=== PATIENT | female | born 1995 | race Native Hawaiian/Other Pacific Islander ===

== ENCOUNTER 2020-05-30 16:51 | Inpatient (IN) | payer OTHER, SELFPAY ==
--- NOTE | 2020-05-30 20:12 | History and Physical Report ---
History of Present Illness Date of examination: 05/30/20 Date of admission: 05/30/2020 Chief complaint: Contractions and Back Pain History of present illness: Early entry to care at [facility] , uncomplicated course. Past History Past Medical History: no pertinent history Past Surgical History: no surgical history Family/Genetic History: none Social history: no significant social history - Obstetrical History Expected Date of Delivery: 06/09/20 Actual Gestation: 38 Week(s) 4 Day(s) : 4 Para: 2 Spontaneous Abortions: 1 Number of Living Children: 2 Medications and Allergies Allergies Allergy/AdvReac Type Severity Reaction Status Date / Time No Known Allergies Allergy Verified 05/30/20 17:19 Home Medications Medication Instructions Recorded Confirmed Last Taken Type No Known Home Medications [No 05/30/20 05/30/20 Unknown History Reported Home Medications] Review of Systems All systems: negative - Vital Signs Vital signs: Vital Signs Pulse Pulse Ox 94 H 99 05/30/20 17:16 05/30/20 17:16 Temp Pulse Resp BP Pulse Ox 98.4 F 83 20 112/61 98 05/30/20 19:16 05/30/20 20:04 05/30/20 17:19 05/30/20 19:18 05/30/20 20:04 - Physical Exam Breasts: Positive: normal Cardiovascular: Regular rate Lungs: Positive: Clear to auscultation, Normal air movement Abdomen: Positive: normal appearance, soft, normal bowel sounds Genitourinary (Female): Positive: normal external genitalia, normal perenium Vagina: Positive: normal moisture Uterus: Positive: enlarged Anus/Rectum: Positive: normal perianal skin Extremities: Positive: normal - Obstetrical FHR: category 1 Uterine Contraction Monitor Mode: External Cervical Dilatation: 4 (Vtx; Intact) Cervical Effacement Percentage: 60 station: -2 Uterine Contraction Pattern: Irregular Uterine Tone Measurement Phase: Resting Uterine Contraction Intensity: Moderate Results All other labs normal. Assessment and Plan A: IUP @ 38 4/7 Weeks Category I Tracing Active Labor GBS Negative P: Admit to L&D Per Routine Orders Expectant Management
[2020-05-30] MEDS ORDERED: LIDOCAINE (2%) 20 MG/1 ML VIAL 20 ML MDV INFILTRATI ONE (20:21)
[2020-05-30] MEDS ORDERED: NALOXONE 0.4 MG/1 ML INJ IV PRN (20:21)
[2020-05-30] MEDS ORDERED: TERBUTALINE 1 MG/1 ML INJ SUB-Q PRN (20:21)
[2020-05-30] MEDS ORDERED: BUTORPHANOL 2 MG/1 ML INJ IV PRN (20:21)
[2020-05-30] MEDS ORDERED: ePHEDrine SULFATE 50 MG/1 ML INJ IV PRN (20:21)
[2020-05-30] MEDS ORDERED: MINERAL OIL 30 ML ORAL LIQD PO PRN (20:21)
[2020-05-30] MEDS ORDERED: ONDANSETRON 4 MG/2 ML INJ IV PRN (20:21)
[2020-05-30] MEDS: LACTATED RINGERS 1,000 ML IV SCH (20:35)
[2020-05-30 20:38] LABS: Hemoglobin 11.5 gm/dl (10.1-14.3); Mean Corpuscular HGB Conc 34 % (30-34); Mean Corpuscular Volume 79 fl (79-97); Platelet Count 264 K/mm3 (140-440); Red Blood Count 4.29 M/mm3 (3.65-5.03); Red Cell Distribution Width 14.6 % (13.2-15.2)
[2020-05-30] MEDS ORDERED: OXYTOCIN DRIP 30 UNITS/500 ML BAG IV SCH (21:00)
[2020-05-31] MEDS: ACETAMINOPHEN 500 MG TAB PO PRN ×2 (02:46→22:31)
[2020-05-31] MEDS: LACTATED RINGERS 1,000 ML IV SCH ×5 (04:47→15:57)
--- NOTE | 2020-05-31 10:32 | Progress Note ---
Assessment and Plan A: IUP@ 38.5 wks CAT I FHT p: Continue monitoring Pain med/Epidural prn AROM (cl fluid) Anticipate - Patient Problems (1) Term Current Visit: Yes Status: Acute Subjective - Subjective Date of service: 05/31/20 Principal diagnosis: IUP@ 38.5 WKS Patient reports: movement normal Objective - Vital Signs Vital Signs: Vital Signs - 12hr 05/30/20 05/30/20 05/30/20 22:29 22:34 22:39 Temperature Pulse Rate 101 H 102 H 77 Blood Pressure O2 Sat by Pulse 98 99 99 Oximetry 05/30/20 05/30/20 05/30/20 22:44 22:49 22:54 Temperature Pulse Rate 101 H 85 72 Blood Pressure O2 Sat by Pulse 99 98 98 Oximetry 05/30/20 05/30/20 05/30/20 22:59 23:04 23:09 Temperature Pulse Rate 82 89 80 Blood Pressure O2 Sat by Pulse 98 98 98 Oximetry 05/30/20 05/30/20 05/30/20 23:14 23:19 23:24 Temperature Pulse Rate 85 92 H 85 Blood Pressure O2 Sat by Pulse 98 98 98 Oximetry 05/30/20 05/30/20 05/30/20 23:29 23:34 23:39 Temperature Pulse Rate 86 79 86 Blood Pressure O2 Sat by Pulse 98 98 98 Oximetry 05/30/20 05/30/20 05/30/20 23:44 23:49 23:54 Temperature Pulse Rate 78 93 H 89 Blood Pressure O2 Sat by Pulse 98 98 98 Oximetry 05/30/20 05/31/20 05/31/20 23:59 00:04 00:09 Temperature Pulse Rate 85 87 85 Blood Pressure O2 Sat by Pulse 97 99 99 Oximetry 05/31/20 05/31/20 05/31/20 00:14 00:19 00:24 Temperature Pulse Rate 79 92 H 83 Blood Pressure O2 Sat by Pulse 99 100 99 Oximetry 05/31/20 05/31/20 05/31/20 00:29 00:34 00:39 Temperature Pulse Rate 91 H 93 H 91 H Blood Pressure O2 Sat by Pulse 100 99 99 Oximetry 05/31/20 05/31/20 05/31/20 00:44 00:49 00:54 Temperature Pulse Rate 77 89 80 Blood Pressure O2 Sat by Pulse 100 99 99 Oximetry 05/31/20 05/31/20 05/31/20 00:59 01:04 01:09 Temperature Pulse Rate 79 82 73 Blood Pressure O2 Sat by Pulse 99 99 99 Oximetry 05/31/20 05/31/20 05/31/20 01:14 01:19 01:24 Temperature Pulse Rate 73 71 75 Blood Pressure O2 Sat by Pulse 98 98 98 Oximetry 05/31/20 05/31/20 05/31/20 01:29 01:34 01:39 Temperature Pulse Rate 74 77 79 Blood Pressure O2 Sat by Pulse 98 98 100 Oximetry 05/31/20 05/31/20 05/31/20 01:44 01:49 01:55 Temperature Pulse Rate 78 68 74 Blood Pressure O2 Sat by Pulse 98 99 99 Oximetry 05/31/20 05/31/20 05/31/20 02:00 02:05 02:10 Temperature Pulse Rate 69 78 78 Blood Pressure O2 Sat by Pulse 99 99 100 Oximetry 05/31/20 05/31/20 05/31/20 02:15 02:20 02:25 Temperature Pulse Rate 73 79 74 Blood Pressure O2 Sat by Pulse 99 97 99 Oximetry 05/31/20 05/31/20 05/31/20 02:30 02:35 02:40 Temperature Pulse Rate 88 78 77 Blood Pressure O2 Sat by Pulse 97 98 98 Oximetry 05/31/20 05/31/20 05/31/20 02:45 02:50 02:55 Temperature Pulse Rate 89 78 85 Blood Pressure O2 Sat by Pulse 99 98 98 Oximetry 05/31/20 05/31/20 05/31/20 02:56 03:00 03:05 Temperature Pulse Rate 70 82 83 Blood Pressure 120/57 O2 Sat by Pulse 99 99 Oximetry 05/31/20 05/31/20 05/31/20 03:10 03:15 03:20 Temperature Pulse Rate 77 75 73 Blood Pressure O2 Sat by Pulse 99 98 98 Oximetry 05/31/20 05/31/20 05/31/20 03:25 03:30 03:35 Temperature Pulse Rate 78 67 71 Blood Pressure O2 Sat by Pulse 98 98 98 Oximetry 05/31/20 05/31/20 05/31/20 03:40 03:45 03:50 Temperature Pulse Rate 77 76 82 Blood Pressure O2 Sat by Pulse 98 98 97 Oximetry 05/31/20 05/31/20 05/31/20 03:55 03:57 04:00 Temperature Pulse Rate 80 70 79 Blood Pressure 112/59 O2 Sat by Pulse 98 98 Oximetry 05/31/20 05/31/20 05/31/20 04:04 04:05 04:10 Temperature Pulse Rate 77 76 80 Blood Pressure O2 Sat by Pulse 92 98 98 Oximetry 05/31/20 05/31/20 05/31/20 04:15 04:20 04:25 Temperature Pulse Rate 74 72 79 Blood Pressure O2 Sat by Pulse 97 98 98 Oximetry 05/31/20 05/31/20 05/31/20 04:30 04:35 04:40 Temperature Pulse Rate 75 73 82 Blood Pressure O2 Sat by Pulse 98 98 98 Oximetry 05/31/20 05/31/20 05/31/20 04:45 04:50 04:55 Temperature Pulse Rate 76 78 65 Blood Pressure O2 Sat by Pulse 98 98 98 Oximetry 05/31/20 05/31/20 05/31/20 04:57 05:00 05:05 Temperature Pulse Rate 65 72 82 Blood Pressure 116/57 O2 Sat by Pulse 99 98 Oximetry 05/31/20 05/31/20 05/31/20 05:10 05:15 05:20 Temperature Pulse Rate 75 77 75 Blood Pressure O2 Sat by Pulse 98 99 99 Oximetry 05/31/20 05/31/20 05/31/20 05:25 05:30 05:35 Temperature Pulse Rate 86 79 80 Blood Pressure O2 Sat by Pulse 98 99 98 Oximetry 05/31/20 05/31/20 05/31/20 05:40 05:45 05:50 Temperature Pulse Rate 77 91 H 78 Blood Pressure O2 Sat by Pulse 98 99 98 Oximetry 05/31/20 05/31/20 05/31/20 05:55 06:00 06:05 Temperature Pulse Rate 88 74 75 Blood Pressure O2 Sat by Pulse 99 99 98 Oximetry 05/31/20 05/31/20 05/31/20 06:10 06:15 06:20 Temperature Pulse Rate 94 H 75 87 Blood Pressure O2 Sat by Pulse 99 98 99 Oximetry 05/31/20 05/31/20 05/31/20 06:25 06:30 06:35 Temperature Pulse Rate 73 84 91 H Blood Pressure O2 Sat by Pulse 99 98 99 Oximetry 05/31/20 05/31/20 05/31/20 06:40 06:45 07:01 Temperature Pulse Rate 72 67 74 Blood Pressure O2 Sat by Pulse 99 100 100 Oximetry 05/31/20 05/31/20 05/31/20 07:04 07:06 07:11 Temperature Pulse Rate 75 69 71 Blood Pressure 103/60 O2 Sat by Pulse 100 99 Oximetry 05/31/20 05/31/20 05/31/20 07:12 07:16 07:21 Temperature 98.1 F Pulse Rate 75 68 74 Blood Pressure O2 Sat by Pulse 99 98 Oximetry 05/31/20 05/31/20 05/31/20 07:26 07:31 07:36 Temperature Pulse Rate 73 71 73 Blood Pressure O2 Sat by Pulse 99 99 100 Oximetry 05/31/20 05/31/20 05/31/20 07:41 07:46 07:51 Temperature Pulse Rate 79 70 75 Blood Pressure O2 Sat by Pulse 99 98 99 Oximetry 05/31/20 05/31/20 05/31/20 07:56 07:57 08:01 Temperature Pulse Rate 77 72 76 Blood Pressure 103/59 O2 Sat by Pulse 100 99 Oximetry 05/31/20 05/31/20 05/31/20 08:06 08:11 08:16 Temperature Pulse Rate 77 81 81 Blood Pressure O2 Sat by Pulse 99 99 99 Oximetry 05/31/20 05/31/20 05/31/20 08:21 08:26 08:31 Temperature Pulse Rate 71 78 76 Blood Pressure O2 Sat by Pulse 100 99 100 Oximetry 05/31/20 05/31/20 05/31/20 08:36 08:41 08:46 Temperature Pulse Rate 86 85 73 Blood Pressure O2 Sat by Pulse 100 99 99 Oximetry 05/31/20 05/31/20 05/31/20 08:51 09:36 09:41 Temperature Pulse Rate 81 72 81 Blood Pressure O2 Sat by Pulse 100 100 100 Oximetry 05/31/20 05/31/20 05/31/20 09:46 09:51 09:56 Temperature Pulse Rate 80 76 71 Blood Pressure O2 Sat by Pulse 100 100 100 Oximetry 05/31/20 05/31/20 05/31/20 10:01 10:06 10:11 Temperature Pulse Rate 86 82 78 Blood Pressure O2 Sat by Pulse 100 98 100 Oximetry 05/31/20 05/31/20 05/31/20 10:16 10:21 10:26 Temperature Pulse Rate 79 81 84 Blood Pressure O2 Sat by Pulse 100 99 100 Oximetry - Exam Breasts: normal Abdomen: Present: normal appearance, soft, normal bowel sounds, other (GRAVID) Vulva: both: normal Uterus: Present: normal, other (GRAVID) FHR: auscultation normal, category 1 Uterine Contraction Monitor Mode: External Cervical Dilatation: 5 Cervical Effacement Percentage: 50 station: -2 Uterine Contraction Frequency (min): irreg Uterine Contraction Pattern: Irregular Uterine Tone Measurement Phase: Resting Uterine Contraction Intensity: Moderate Extremities: normal - Labs Labs: Abnormal Labs 05/30/20 18:16 WBC 15.2 H MCH 27 L Laboratory Results - last 24 hr 05/30/20 05/30/20 18:16 18:16 WBC 15.2 H RBC 4.29 Hgb 11.5 Hct 34.0 MCV 79 MCH 27 L MCHC 34 RDW 14.6 Plt Count 264 Blood Type B POSITIVE Antibody Screen Negative
[2020-05-31] MEDS ORDERED: DEXMEDETOMIDINE 200 MCG/2 ML VIAL IV ONE (11:40)
[2020-05-31] MEDS ORDERED: NALOXONE 2 MG/2 ML INJ IV PRN (12:11)
--- NOTE | 2020-05-31 12:12 | Anesthesia Consultation ---
Anesthesia Consult and Med Hx Date of service: 05/31/20 - Airway Anesthetic Teeth Evaluation: Chipped ROM Head & Neck: Adequate Mental/Hyoid Distance: Adequate Mallampati Class: Class II Intubation Access Assessment: Probably Good - Pulmonary Exam CTA: Yes - Cardiac Exam Cardiac Exam: RRR - Pre-Operative Health Status ASA Pre-Surgery Classification: ASA2 Proposed Anesthetic Plan: Epidural - Pulmonary Hx Asthma: No COPD: No Hx Pneumonia: No - Cardiovascular System Hx Hypertension: No - Central Nervous System Hx Seizures: No Hx Psychiatric Problems: No - Endocrine Hx Renal Disease: No Hx End Stage Renal Disease: No Hx Hypothyroidism: No Hx Hyperthyroidism: No - Hematic Hx Anemia: Yes Hx Sickle Cell Disease: No - Other Systems Hx Alcohol Use: No - Additional Comments Anesthesia Medical History Comments: Scoliosis
--- NOTE | 2020-05-31 12:23 | Progress Note ---
Labor Epidural - Labor Epidural Start Time: 11:48 Stop Time: 11:55 Performed by:: APARNA KITCHEN Procedure: Patient is requesting epidural for labor pain. H&P, and labs reviewed. Procedure explained, questions answered, consent obtained. Patient in sitting position with blood pressure cuff and pulse ox on and working. Timeout performed immediately before start of procedure. Sterile betadine prep/drape. 3 mL 1% lidocaine skin wheal at L[3]-L[4]. 18-gauge Touhy epidural needle advanced to [id number] with saline at [7] cm. 27-gauge spinal needle advanced until clear, free-flowing CSF. Intrathecal dexmedetomidine [5] mcg administered and needle removed. Epidural catheter advanced to [12] cm, negative aspiration for blood and csf, negative test dose 3 ml 1.5% lidocaine with epinephrine. Sterile steri-strips and tegaderm applied, followed by tape reinforcement. Patient tolerated procedure well.
[2020-05-31] MEDS: ePHEDrine SULFATE 50 MG/1 ML INJ IV PRN ×3 (12:30→12:52)
[2020-05-31] MEDS ORDERED: fentaNYL-BUPIV 2 MCG/ML-0.125% 200 MCG/100 ML BAG EPIDURAL SCH (13:00)
--- NOTE | 2020-05-31 15:14 | Progress Note ---
Assessment and Plan A: IUP @ 38.5 wks CAT II FHT (repetitive late decels with mod tosin) P:Administer Fluid bolus 02 @ 10 L via FM IFM/IUPC placed Dr Foley called x2 for consult US ordered to r/o abruption r/t more than expected vag bleeding Continue monitoring - Patient Problems (1) Term Current Visit: Yes Status: Acute Subjective - Subjective Date of service: 05/31/20 Principal diagnosis: IUP@ 38.5 WKS Patient reports: movement normal Objective - Vital Signs Vital Signs: Vital Signs - 12hr 05/31/20 05/31/20 05/31/20 03:10 03:15 03:20 Temperature Pulse Rate 77 75 73 Blood Pressure O2 Sat by Pulse 99 98 98 Oximetry 05/31/20 05/31/20 05/31/20 03:25 03:30 03:35 Temperature Pulse Rate 78 67 71 Blood Pressure O2 Sat by Pulse 98 98 98 Oximetry 05/31/20 05/31/20 05/31/20 03:40 03:45 03:50 Temperature Pulse Rate 77 76 82 Blood Pressure O2 Sat by Pulse 98 98 97 Oximetry 05/31/20 05/31/20 05/31/20 03:55 03:57 04:00 Temperature Pulse Rate 80 70 79 Blood Pressure 112/59 O2 Sat by Pulse 98 98 Oximetry 05/31/20 05/31/20 05/31/20 04:04 04:05 04:10 Temperature Pulse Rate 77 76 80 Blood Pressure O2 Sat by Pulse 92 98 98 Oximetry 05/31/20 05/31/20 05/31/20 04:15 04:20 04:25 Temperature Pulse Rate 74 72 79 Blood Pressure O2 Sat by Pulse 97 98 98 Oximetry 05/31/20 05/31/20 05/31/20 04:30 04:35 04:40 Temperature Pulse Rate 75 73 82 Blood Pressure O2 Sat by Pulse 98 98 98 Oximetry 05/31/20 05/31/20 05/31/20 04:45 04:50 04:55 Temperature Pulse Rate 76 78 65 Blood Pressure O2 Sat by Pulse 98 98 98 Oximetry 05/31/20 05/31/20 05/31/20 04:57 05:00 05:05 Temperature Pulse Rate 65 72 82 Blood Pressure 116/57 O2 Sat by Pulse 99 98 Oximetry 05/31/20 05/31/2005/31/20 05:10 05:15 05:20 Temperature Pulse Rate 75 77 75 Blood Pressure O2 Sat by Pulse 98 99 99 Oximetry 05/31/20 05/31/20 05/31/20 05:25 05:30 05:35 Temperature Pulse Rate 86 79 80 Blood Pressure O2 Sat by Pulse 98 99 98 Oximetry 05/31/20 05/31/20 05/31/20 05:40 05:45 05:50 Temperature Pulse Rate 77 91 H 78 Blood Pressure O2 Sat by Pulse 98 99 98 Oximetry 05/31/20 05/31/20 05/31/20 05:55 06:00 06:05 Temperature Pulse Rate 88 74 75 Blood Pressure O2 Sat by Pulse 99 99 98 Oximetry 05/31/20 05/31/20 05/31/20 06:10 06:15 06:20 Temperature Pulse Rate 94 H 75 87 Blood Pressure O2 Sat by Pulse 99 98 99 Oximetry 05/31/20 05/31/20 05/31/20 06:25 06:30 06:35 Temperature Pulse Rate 73 84 91 H Blood Pressure O2 Sat by Pulse 99 98 99 Oximetry 05/31/20 05/31/20 05/31/20 06:40 06:45 07:01 Temperature Pulse Rate 72 67 74 Blood Pressure O2 Sat by Pulse 99 100 100 Oximetry 05/31/20 05/31/20 05/31/20 07:04 07:06 07:11 Temperature Pulse Rate 75 69 71 Blood Pressure 103/60 O2 Sat by Pulse 100 99 Oximetry 05/31/20 05/31/20 05/31/20 07:12 07:16 07:21 Temperature 98.1 F Pulse Rate 75 68 74 Blood Pressure O2 Sat by Pulse 99 98 Oximetry 05/31/20 05/31/20 05/31/20 07:26 07:31 07:36 Temperature Pulse Rate 73 71 73 Blood Pressure O2 Sat by Pulse 99 99 100 Oximetry 05/31/20 05/31/20 05/31/20 07:41 07:46 07:51 Temperature Pulse Rate 79 70 75 Blood Pressure O2 Sat by Pulse 99 98 99 Oximetry 05/31/20 05/31/20 05/31/20 07:56 07:57 08:01 Temperature Pulse Rate 77 72 76 Blood Pressure 103/59 O2 Sat by Pulse 100 99 Oximetry 1005/31/20 05/31/20 08:06 08:11 08:16 Temperature Pulse Rate 77 81 81 Blood Pressure O2 Sat by Pulse 99 99 99 Oximetry 05/31/20 05/31/20 05/31/20 08:21 08:26 08:31 Temperature Pulse Rate 71 78 76 Blood Pressure O2 Sat by Pulse 100 99 100 Oximetry 05/31/20 05/31/20 05/31/20 08:36 08:41 08:46 Temperature Pulse Rate 86 85 73 Blood Pressure O2 Sat by Pulse 100 99 99 Oximetry 05/31/20 05/31/20 05/31/20 08:51 09:36 09:41 Temperature Pulse Rate 81 72 81 Blood Pressure O2 Sat by Pulse 100 100 100 Oximetry 05/31/20 05/31/20 05/31/20 09:46 09:51 09:56 Temperature Pulse Rate 80 76 71 Blood Pressure O2 Sat by Pulse 100 100 100 Oximetry 05/31/20 05/31/20 05/31/20 10:01 10:06 10:11 Temperature Pulse Rate 86 82 78 Blood Pressure O2 Sat by Pulse 100 98 100 Oximetry 05/31/20 05/31/20 05/31/20 10:16 10:21 10:26 Temperature Pulse Rate 79 81 84 Blood Pressure O2 Sat by Pulse 100 99 100 Oximetry 05/31/20 05/31/20 05/31/20 10:31 10:36 10:41 Temperature Pulse Rate 84 81 87 Blood Pressure O2 Sat by Pulse 100 100 100 Oximetry 05/31/20 05/31/20 05/31/20 10:57 10:58 11:03 Temperature Pulse Rate 76 80 79 Blood Pressure 107/56 O2 Sat by Pulse 100 100 Oximetry 05/31/20 05/31/20 05/31/20 11:08 11:13 11:18 Temperature Pulse Rate 80 85 89 Blood Pressure O2 Sat by Pulse 100 100 100 Oximetry 05/31/20 05/31/20 05/31/20 11:23 11:28 11:33 Temperature Pulse Rate 83 73 88 Blood Pressure O2 Sat by Pulse 100 100 100 Oximetry 05/31/20 05/31/20 05/31/20 11:38 11:43 11:48 Temperature Pulse Rate 92 H 83 89 Blood Pressure O2 Sat by Pulse 100 100 100 Oximetry 05/31/20 05/31/20 05/31/20 11:53 11:58 12:03 Temperature Pulse Rate 89 85 67 Blood Pressure O2 Sat by Pulse 100 100 100 Oximetry 05/31/20 05/31/20 05/31/20 12:08 12:11 12:13 Temperature Pulse Rate 75 85 84 Blood Pressure 92/54 87/50 O2 Sat by Pulse 100 100 Oximetry 05/31/20 05/31/20 05/31/20 12:15 12:17 12:18 Temperature Pulse Rate 78 85 79 Blood Pressure 90/50 85/50 O2 Sat by Pulse 100 Oximetry 05/31/20 05/31/20 05/31/20 12:19 12:20 12:22 Temperature Pulse Rate 80 83 84 Blood Pressure 77/41 78/44 82/49 O2 Sat by Pulse Oximetry 05/31/20 05/31/20 05/31/20 12:23 12:25 12:27 Temperature Pulse Rate 73 82 84 Blood Pressure 92/51 85/53 O2 Sat by Pulse 100 Oximetry 05/31/20 05/31/20 05/31/20 12:28 12:29 12:31 Temperature Pulse Rate 87 84 89 Blood Pressure 86/49 92/55 O2 Sat by Pulse 100 Oximetry 05/31/20 05/31/20 05/31/20 12:33 12:35 12:37 Temperature Pulse Rate 85 90 89 Blood Pressure 94/52 99/54 104/55 O2 Sat by Pulse 100 Oximetry 05/31/20 05/31/20 05/31/20 12:38 12:39 12:41 Temperature Pulse Rate 101 H 91 H 89 Blood Pressure 83/47 81/46 O2 Sat by Pulse 100 Oximetry 05/31/20 05/31/20 05/31/20 12:43 12:45 12:47 Temperature Pulse Rate 96 H 98 H 97 H Blood Pressure 88/53 87/52 93/51 O2 Sat by Pulse 100 Oximetry 05/31/20 05/31/20 05/31/20 12:48 12:49 12:51 Temperature Pulse Rate 93 H 95 H 98 H Blood Pressure 98/56 87/50 O2 Sat by Pulse 100 Oximetry 05/31/20 05/31/20 05/31/20 12:53 12:55 12:57 Temperature Pulse Rate 100 H 100 H 108 H Blood Pressure 97/56 103/60 105/62 O2 Sat by Pulse 100 Oximetry 05/31/20 05/31/20 05/31/20 12:58 13:03 13:04 Temperature Pulse Rate 102 H 104 H 107 H Blood Pressure 77/45 O2 Sat by Pulse 100 100 Oximetry 05/31/20 05/31/20 05/31/20 13:07 13:08 13:10 Temperature Pulse Rate 106 H 104 H 101 H Blood Pressure 103/56 114/61 O2 Sat by Pulse 100 Oximetry 05/31/20 05/31/20 05/31/20 13:12 13:13 13:14 Temperature Pulse Rate 106 H 106 H 104 H Blood Pressure 131/73 122/69 O2 Sat by Pulse 100 Oximetry 05/31/20 05/31/20 05/31/20 13:18 13:19 13:23 Temperature Pulse Rate 107 H 106 H 100 H Blood Pressure 105/60 O2 Sat by Pulse 100 100 Oximetry 05/31/20 05/31/20 05/31/20 13:28 13:30 13:31 Temperature Pulse Rate 109 H 111 H 94 H Blood Pressure 98/56 100/60 O2 Sat by Pulse 100 Oximetry 05/31/20 05/31/20 05/31/20 13:33 13:38 13:40 Temperature Pulse Rate 116 H 100 H 102 H Blood Pressure 105/57 O2 Sat by Pulse 100 100 Oximetry 05/31/20 05/31/20 05/31/20 13:43 13:45 13:48 Temperature Pulse Rate 101 H 100 H 107 H Blood Pressure 131/76 O2 Sat by Pulse 100 100 Oximetry 05/31/20 05/31/20 05/31/20 13:49 13:53 13:54 Temperature Pulse Rate 105 H 97 H 95 H Blood Pressure 123/70 115/67 O2 Sat by Pulse 100 Oximetry 05/31/20 05/31/20 05/31/20 13:58 14:00 14:03 Temperature Pulse Rate 101 H 98 H 114 H Blood Pressure 116/65 O2 Sat by Pulse 100 100 Oximetry 05/31/20 05/31/20 05/31/20 14:04 14:08 14:10 Temperature Pulse Rate 90 109 H 101 H Blood Pressure 110/62 118/67 O2 Sat by Pulse 100 Oximetry 05/31/20 05/31/20 05/31/20 14:13 14:15 14:18 Temperature Pulse Rate 101 H 100 H 96 H Blood Pressure 115/63 O2 Sat by Pulse 100 100 Oximetry 05/31/20 05/31/20 05/31/20 14:23 14:24 14:28 Temperature Pulse Rate 131 H 130 H 107 H Blood Pressure 114/60 O2 Sat by Pulse 100 100 Oximetry 05/31/20 05/31/20 05/31/20 14:29 14:33 14:36 Temperature Pulse Rate 107 H 120 H 117 H Blood Pressure 113/67 100/56 O2 Sat by Pulse 100 Oximetry 05/31/20 05/31/20 05/31/20 14:38 14:41 14:43 Temperature Pulse Rate 115 H 116 H 111 H Blood Pressure 102/58 O2 Sat by Pulse 100 100 Oximetry 05/31/20 05/31/20 05/31/20 14:44 14:48 14:49 Temperature Pulse Rate 102 H 117 H 105 H Blood Pressure 109/57 113/64 O2 Sat by Pulse 100 Oximetry 05/31/20 05/31/20 05/31/20 14:53 14:54 14:58 Temperature Pulse Rate 122 H 96 H 108 H Blood Pressure 118/69 O2 Sat by Pulse 100 100 Oximetry 05/31/20 05/31/20 05/31/20 14:59 15:03 15:04 Temperature Pulse Rate 111 H 110 H 102 H Blood Pressure 102/58 95/54 O2 Sat by Pulse 100 Oximetry - Exam Breasts: deferred Abdomen: Present: normal appearance, soft, other (gravid) Vulva: both: normal Uterus: Present: normal FHR: auscultation normal, category 2, other (FHT 138 with occ late decels noted) Uterine Contraction Monitor Mode: External Cervical Dilatation: 5 Cervical Effacement Percentage: 50 station: -2 Uterine Contraction Frequency (min): irreg Uterine Contraction Pattern: Irregular Uterine Tone Measurement Phase: Resting Uterine Contraction Intensity: Moderate Extremities: normal - Labs Labs: Abnormal Labs 05/30/20 18:16 WBC 15.2 H MCH 27 L Laboratory Results - last 24 hr 05/30/20 05/30/20 18:16 18:16 WBC 15.2 H RBC 4.29 Hgb 11.5 Hct 34.0 MCV 79 MCH 27 L MCHC 34 RDW 14.6 Plt Count 264 Blood Type B POSITIVE Antibody Screen Negative
--- NOTE | 2020-05-31 15:54 | Progress Note ---
Assessment and Plan A: IUP@ 38.5 wks CAT I FHT P: Start Pitocin per NARINDER protocal per Dr Foley Continue monitoring Anticipate - Patient Problems (1) Term Current Visit: Yes Status: Acute Subjective - Subjective Date of service: 05/31/20 Principal diagnosis: IUP@ 38.5 WKS Patient reports: movement normal Objective - Vital Signs Vital Signs: Vital Signs - 12hr 05/31/20 05/31/20 05/31/20 03:55 03:57 04:00 Temperature Pulse Rate 80 70 79 Blood Pressure 112/59 O2 Sat by Pulse 98 98 Oximetry 05/31/20 05/31/20 05/31/20 04:04 04:05 04:10 Temperature Pulse Rate 77 76 80 Blood Pressure O2 Sat by Pulse 92 98 98 Oximetry 05/31/20 05/31/20 05/31/20 04:15 04:20 04:25 Temperature Pulse Rate 74 72 79 Blood Pressure O2 Sat by Pulse 97 98 98 Oximetry 05/31/20 05/31/20 05/31/20 04:30 04:35 04:40 Temperature Pulse Rate 75 73 82 Blood Pressure O2 Sat by Pulse 98 98 98 Oximetry 05/31/20 05/31/20 05/31/20 04:45 04:50 04:55 Temperature Pulse Rate 76 78 65 Blood Pressure O2 Sat by Pulse 98 98 98 Oximetry 05/31/20 05/31/20 05/31/20 04:57 05:00 05:05 Temperature Pulse Rate 65 72 82 Blood Pressure 116/57 O2 Sat by Pulse 99 98 Oximetry 05/31/20 05/31/20 05/31/20 05:10 05:15 05:20 Temperature Pulse Rate 75 77 75 Blood Pressure O2 Sat by Pulse 98 99 99 Oximetry 05/31/20 05/31/20 05/31/20 05:25 05:30 05:35 Temperature Pulse Rate 86 79 80 Blood Pressure O2 Sat by Pulse 98 99 98 Oximetry 05/31/20 05/31/20 05/31/20 05:40 05:45 05:50 Temperature Pulse Rate 77 91 H 78 Blood Pressure O2 Sat by Pulse 98 99 98 Oximetry 05/31/20 05/31/20 05/31/20 05:55 06:00 06:05 Temperature Pulse Rate 88 74 75 Blood Pressure O2 Sat by Pulse 99 99 98 Oximetry 05/31/20 05/31/20 05/31/20 06:10 06:15 06:20 Temperature Pulse Rate 94 H 75 87 Blood Pressure O2 Sat by Pulse 99 98 99 Oximetry 05/31/20 05/31/20 05/31/20 06:25 06:30 06:35 Temperature Pulse Rate 73 84 91 H Blood Pressure O2 Sat by Pulse 99 98 99 Oximetry 05/31/20 05/31/20 05/31/20 06:40 06:45 07:01 Temperature Pulse Rate 72 67 74 Blood Pressure O2 Sat by Pulse 99 100 100 Oximetry 05/31/20 05/31/20 05/31/20 07:04 07:06 07:11 Temperature Pulse Rate 75 69 71 Blood Pressure 103/60 O2 Sat by Pulse 100 99 Oximetry 05/31/20 05/31/20 05/31/20 07:12 07:16 07:21 Temperature 98.1 F Pulse Rate 75 68 74 Blood Pressure O2 Sat by Pulse 99 98 Oximetry 05/31/20 05/31/20 05/31/20 07:26 07:31 07:36 Temperature Pulse Rate 73 71 73 Blood Pressure O2 Sat by Pulse 99 99 100 Oximetry 05/31/20 05/31/20 05/31/20 07:41 07:46 07:51 Temperature Pulse Rate 79 70 75 Blood Pressure O2 Sat by Pulse 99 98 99 Oximetry 05/31/20 05/31/20 05/31/20 07:56 07:57 08:01 Temperature Pulse Rate 77 72 76 Blood Pressure 103/59 O2 Sat by Pulse 100 99 Oximetry 05/31/20 05/31/20 05/31/20 08:06 08:11 08:16 Temperature Pulse Rate 77 81 81 Blood Pressure O2 Sat by Pulse 99 99 99 Oximetry 05/31/20 05/31/20 05/31/20 08:21 08:26 08:31 Temperature Pulse Rate 71 78 76 Blood Pressure O2 Sat by Pulse 100 99 100 Oximetry 05/31/20 05/31/20 05/31/20 08:36 08:41 08:46 Temperature Pulse Rate 86 85 73 Blood Pressure O2 Sat by Pulse 100 99 99 Oximetry 05/31/20 05/31/20 05/31/20 08:51 09:36 09:41 Temperature Pulse Rate 81 72 81 Blood Pressure O2 Sat by Pulse 100 100 100 Oximetry 05/31/20 05/31/20 05/31/20 09:46 09:51 09:56 Temperature Pulse Rate 80 76 71 Blood Pressure O2 Sat by Pulse 100 100 100 Oximetry 05/31/20 05/31/20 05/31/20 10:01 10:06 10:11 Temperature Pulse Rate 86 82 78 Blood Pressure O2 Sat by Pulse 100 98 100 Oximetry 05/31/20 05/31/20 05/31/20 10:16 10:21 10:26 Temperature Pulse Rate 79 81 84 Blood Pressure O2 Sat by Pulse 100 99 100 Oximetry 05/31/20 05/31/20 05/31/20 10:31 10:36 10:41 Temperature Pulse Rate 84 81 87 Blood Pressure O2 Sat by Pulse 100 100 100 Oximetry 05/31/20 05/31/20 05/31/20 10:57 10:58 11:03 Temperature Pulse Rate 76 80 79 Blood Pressure 107/56 O2 Sat by Pulse 100 100 Oximetry 05/31/20 05/31/20 05/31/20 11:08 11:13 11:18 Temperature Pulse Rate 80 85 89 Blood Pressure O2 Sat by Pulse 100 100 100 Oximetry 05/31/20 05/31/20 05/31/20 11:23 11:28 11:33 Temperature Pulse Rate 83 73 88 Blood Pressure O2 Sat by Pulse 100 100 100 Oximetry 05/31/20 05/31/20 05/31/20 11:38 11:43 11:48 Temperature Pulse Rate 92 H 83 89 Blood Pressure O2 Sat by Pulse 100 100 100 Oximetry 05/31/20 05/31/20 05/31/20 11:53 11:58 12:03 Temperature Pulse Rate 89 85 67 Blood Pressure O2 Sat by Pulse 100 100 100 Oximetry 05/31/20 05/31/20 05/31/20 12:08 12:11 12:13 Temperature Pulse Rate 75 85 84 Blood Pressure 92/54 87/50 O2 Sat by Pulse 100 100 Oximetry 05/31/20 05/31/20 05/31/20 12:15 12:17 12:18 Temperature Pulse Rate 78 85 79 Blood Pressure 90/50 85/50 O2 Sat by Pulse 100 Oximetry 05/31/20 05/31/20 05/31/20 12:19 12:20 12:22 Temperature Pulse Rate 80 83 84 Blood Pressure 77/41 78/44 82/49 O2 Sat by Pulse Oximetry 05/31/20 05/31/20 05/31/20 12:23 12:25 12:27 Temperature Pulse Rate 73 82 84 Blood Pressure 92/51 85/53 O2 Sat by Pulse 100 Oximetry 05/31/20 05/31/20 05/31/20 12:28 12:29 12:31 Temperature Pulse Rate 87 84 89 Blood Pressure 86/49 92/55 O2 Sat by Pulse 100 Oximetry 05/31/20 05/31/20 05/31/20 12:33 12:35 12:37 Temperature Pulse Rate 85 90 89 Blood Pressure 94/52 99/54 104/55 O2 Sat by Pulse 100 Oximetry 05/31/20 05/31/20 05/31/20 12:38 12:39 12:41 Temperature Pulse Rate 101 H 91 H 89 Blood Pressure 83/47 81/46 O2 Sat by Pulse 100 Oximetry 05/31/20 05/31/20 05/31/20 12:43 12:45 12:47 Temperature Pulse Rate 96 H 98 H 97 H Blood Pressure 88/53 87/52 93/51 O2 Sat by Pulse 100 Oximetry 05/31/20 05/31/20 05/31/20 12:48 12:49 12:51 Temperature Pulse Rate 93 H 95 H 98 H Blood Pressure 98/56 87/50 O2 Sat by Pulse 100 Oximetry 05/31/20 05/31/20 05/31/20 12:53 12:55 12:57 Temperature Pulse Rate 100 H 100 H 108 H Blood Pressure 97/56 103/60 105/62 O2 Sat by Pulse 100 Oximetry 05/31/20 05/31/20 05/31/20 12:58 13:03 13:04 Temperature Pulse Rate 102 H 104 H 107 H Blood Pressure 77/45 O2 Sat by Pulse 100 100 Oximetry 05/31/20 05/31/20 05/31/20 13:07 13:08 13:10 Temperature Pulse Rate 106 H 104 H 101 H Blood Pressure 103/56 114/61 O2 Sat by Pulse 100 Oximetry 05/31/20 05/31/20 05/31/20 13:12 13:13 13:14 Temperature Pulse Rate 106 H 106 H 104 H Blood Pressure 131/73 122/69 O2 Sat by Pulse 100 Oximetry 05/31/20 05/31/20 05/31/20 13:18 13:19 13:23 Temperature Pulse Rate 107 H 106 H 100 H Blood Pressure 105/60 O2 Sat by Pulse 100 100 Oximetry 05/31/20 05/31/20 05/31/20 13:28 13:30 13:31 Temperature Pulse Rate 109 H 111 H 94 H Blood Pressure 98/56 100/60 O2 Sat by Pulse 100 Oximetry 05/31/20 05/31/20 05/31/20 13:33 13:38 13:40 Temperature Pulse Rate 116 H 100 H 102 H Blood Pressure 105/57 O2 Sat by Pulse 100 100 Oximetry 05/31/20 05/31/20 05/31/20 13:43 13:45 13:48 Temperature Pulse Rate 101 H 100 H 107 H Blood Pressure 131/76 O2 Sat by Pulse 100 100 Oximetry 05/31/20 05/31/20 05/31/20 13:49 13:53 13:54 Temperature Pulse Rate 105 H 97 H 95 H Blood Pressure 123/70 115/67 O2 Sat by Pulse 100 Oximetry 05/31/20 05/31/20 05/31/20 13:58 14:00 14:03 Temperature Pulse Rate 101 H 98 H 114 H Blood Pressure 116/65 O2 Sat by Pulse 100 100 Oximetry 05/31/20 05/31/20 05/31/20 14:04 14:08 14:10 Temperature Pulse Rate 90 109 H 101 H Blood Pressure 110/62 118/67 O2 Sat by Pulse 100 Oximetry 05/31/20 05/31/20 05/31/20 14:13 14:15 14:18 Temperature Pulse Rate 101 H 100 H 96 H Blood Pressure 115/63 O2 Sat by Pulse 100 100 Oximetry 05/31/20 05/31/20 05/31/20 14:23 14:24 14:28 Temperature Pulse Rate 131 H 130 H 107 H Blood Pressure 114/60 O2 Sat by Pulse 100 100 Oximetry 05/31/20 05/31/20 05/31/20 14:29 14:33 14:36 Temperature Pulse Rate 107 H 120 H 117 H Blood Pressure 113/67 100/56 O2 Sat by Pulse 100 Oximetry 05/31/20 05/31/20 05/31/20 14:38 14:41 14:43 Temperature Pulse Rate 115 H 116 H 111 H Blood Pressure 102/58 O2 Sat by Pulse 100 100 Oximetry 05/31/20 05/31/20 05/31/20 14:44 14:48 14:49 Temperature Pulse Rate 102 H 117 H 105 H Blood Pressure 109/57 113/64 O2 Sat by Pulse 100 Oximetry 05/31/20 05/31/20 05/31/20 14:53 14:54 14:58 Temperature Pulse Rate 122 H 96 H 108 H Blood Pressure 118/69 O2 Sat by Pulse 100 100 Oximetry 05/31/20 05/31/20 05/31/20 14:59 15:03 15:04 Temperature Pulse Rate 111 H 110 H 102 H Blood Pressure 102/58 95/54 O2 Sat by Pulse 100 Oximetry 05/31/20 05/31/20 05/31/20 15:08 15:09 15:13 Temperature Pulse Rate 127 H 108 H 108 H Blood Pressure 95/54 O2 Sat by Pulse 100 100 Oximetry 05/31/20 05/31/20 05/31/20 15:14 15:18 15:19 Temperature Pulse Rate 112 H 96 H 108 H Blood Pressure 95/54 100/58 O2 Sat by Pulse 100 Oximetry 05/31/20 05/31/20 05/31/20 15:23 15:26 15:28 Temperature Pulse Rate 108 H 105 H 103 H Blood Pressure 90/54 O2 Sat by Pulse 100 100 Oximetry 05/31/20 05/31/20 05/31/20 15:29 15:33 15:34 Temperature Pulse Rate 90 98 H 93 H Blood Pressure 84/52 78/48 O2 Sat by Pulse 100 Oximetry 05/31/20 05/31/20 05/31/20 15:38 15:39 15:43 Temperature Pulse Rate 97 H 100 H 104 H Blood Pressure 119/66 105/58 O2 Sat by Pulse 100 100 Oximetry 05/31/20 05/31/20 05/31/20 15:44 15:48 15:49 Temperature Pulse Rate 110 H 99 H 108 H Blood Pressure 98/55 91/54 O2 Sat by Pulse 100 Oximetry - Exam Breasts: deferred Abdomen: Present: normal appearance, soft Vulva: both: normal Uterus: Present: normal FHR: category 1 Uterine Contraction Monitor Mode: External Uterine Contraction Pattern: Irregular Uterine Tone Measurement Phase: Resting Uterine Contraction Intensity: Moderate Extremities: normal - Labs Labs: Abnormal Labs 05/30/20 18:16 WBC 15.2 H MCH 27 L Laboratory Results - last 24 hr 05/30/20 05/30/20 18:16 18:16 WBC 15.2 H RBC 4.29 Hgb 11.5 Hct 34.0 MCV 79 MCH 27 L MCHC 34 RDW 14.6 Plt Count 264 Blood Type B POSITIVE Antibody Screen Negative
--- NOTE | 2020-05-31 15:59 | Ultrasound Report ---
US OB limited INDICATION / CLINICAL INFORMATION: R/O ABRUPTION- 5 CM. COMPARISON: None available. FINDINGS: A single fetus is seen in cephalic presentation with heart rate 141. The placenta is posterior, to the right and grade 2. No placental separation is seen. IMPRESSION: Single live fetus in cephalic presentation with heart rate 141. No evidence of placental abrupt ion on this exam Signer Name: Jarad Parry MD FACR Signed: 05/31/2020 3:54 PM Workstation Name: [id number]
[2020-05-31] MEDS ORDERED: OXYTOCIN DRIP 30 UNITS/500 ML BAG IV SCH (16:00)
[2020-05-31] MEDS ORDERED: HETASTARCH 6% 500 ML IV ONE (16:20)
[2020-05-31] MEDS ORDERED: ePHEDrine SULFATE 50 MG/1 ML INJ ONE (18:30)
[2020-05-31] MEDS ORDERED: miSOPROStol 200 MCG TAB PR ONE (19:50)
[2020-05-31] MEDS ORDERED: miSOPROStol 200 MCG TAB ONE (19:54)
[2020-05-31] MEDS ORDERED: LANOLIN/ZINC/DIMETHICONE (LANSINOH) 7 GM TP PRN (20:03)
[2020-05-31] MEDS ORDERED: diphenhydrAMINE 25 MG CAP PO PRN (20:03)
[2020-05-31] MEDS ORDERED: MAGNESIUM HYDROXIDE (MOM) ORAL LIQD UDC PO PRN (20:03)
[2020-05-31] MEDS ORDERED: ONDANSETRON 4 MG/2 ML INJ IV PRN (20:03)
[2020-05-31] MEDS ORDERED: WITCH HAZEL/ GLYCERIN PAD TP PRN (20:03)
[2020-05-31] MEDS ORDERED: PROMETHAZINE 25 MG TAB PO PRN (20:03)
[2020-05-31] MEDS ORDERED: PROMETHAZINE 25 MG RECT SUPP PR PRN (20:03)
--- NOTE | 2020-05-31 20:23 | Procedure Note ---
OB Delivery Note - Vaginal Delivery presentation: vertex Delivery position: OA Intrapartum events: meconium, mult. late decelerations, mult.variable deceleratio Delivery induction: none Delivery augmentation: rupture of membranes, pitocin Delivery monitor: external FHT, external uterine, internal FHT, internal uterine Route of delivery: Delivery placenta: spontaneous Delivery cord: 3 umbilical vessels Episiotomy: none Delivery laceration: none Anesthesia: epidural Delivery comments: Called to for delivery. SVE 10/100%/+2 and pt was pushing. of a viable live male in OA position with terminal mec noted. Spontaneous delivery of head and shoulders. Infant was placed on mother's chest for initial skin to skin bonding. Delayed cord clamping x 90 sec then cord was clamped x 2 and FOB was allowed to cut the infant's cord. Infant was given to awaiting SABINE nurse for an asses. 8/9. Spontaneous delivery of an intact placenta with CVX3. Immediately after placenta was delivered pt's fundus became boggy @ U2 with gushes of bright red blood noted from her vagina despite fundal massage and IV Pitocin. Exploration of tears revealed none. Bleeding stopped and fundus remained firm after Cytotec 800mcg pr was given. Mom and baby stable. EBL 150cc FW 3090 Gms. - A at 1 minute: 8 at 5 minutes: 9 Infant Gender: Male (FW 3089 Gms)
[2020-05-31] MEDS: IBUPROFEN 600 MG TAB PO SCH (20:32)
[2020-06-01] MEDS: IBUPROFEN 600 MG TAB PO SCH ×2 (02:44→11:50)
[2020-06-01] MEDS: ACETAMINOPHEN 500 MG TAB PO PRN (05:44)
[2020-06-01 08:14] LABS: Hematocrit 28.4 % (30.3-42.9); Hemoglobin 9.5 gm/dl (10.1-14.3)
--- NOTE | 2020-06-01 11:53 | Discharge Summary ---
Providers - Providers Date of Admission: 05/30/20 20:21 Date of discharge: 06/01/20 (1500) Attending physician: ERNIE COPELAND JR, MD Primary care physician: ERNIE COPELAND JR, MD Hospitalization Reason for admission: active labor Delivery: Episiotomy: none Laceration: none Other procedures: none complications: none Discharge diagnosis: IUP at term delivered, other (anemia; covid positive) baby: male Hospital course: See admission H & P; OB delivery summary and PP progress notes Condition at discharge: Stable Disposition: DC-01 TO HOME OR SELFCARE - Discharge Diagnoses (1) Status post normal vaginal delivery Status: Acute (2) Anemia Status: Acute Qualifiers: Anemia type: other cause Other causes of anemia: acute posthemorrhagic Qualified Code(s): D62 - Acute posthemorrhagic anemia Comment: Asymptomatic (3) COVID-19 determined by clinical diagnostic criteria Status: Acute Plan - Provider Discharge Summary Activity: routine, no sex for 6 weeks, no heavy lifting 4 weeks, no strenuous exercise Diet: other (Iron rich diet) Instructions: routine Additional instructions: [] Smoking cessation referral if applicable(refer to patient education folder for contact #) [] Refer to [facility] Booklet Call your doctor immediately for: * Fever > 100.5 * Heavy vaginal bleeding ( >1 pad per hour) * Severe persistent headache * Shortness of breath * Reddened, hot, painful area to leg or breast * Drainage or odor from incision. * Quarantine for 14 days after discharge from hospital - Follow up plan Follow up: ERNIE COPELAND JR, MD [Primary Care Provider] - 6 Weeks
[2020-06-01 12:30] VITALS: BP 102/55
--- NOTE | 2020-06-01 12:41 | Post Anesthesia Evaluation ---
- Post Anesthesia Evaluation Patient Participated: Yes Airway Patent: Yes Stable Respiratory Function: Yes Nausea/Vomiting: No Temp > 96.8F: Yes Pain Manageable: Yes Adequeate Hydration: Yes Anesthesia Complications: No Block Receding Appropriately: Yes
== END 2020-06-01 15:30 | disposition home or self-care (01) | DRG 805 ==
LOC: TRG 16:51 → APU 16:52 → LD 19:20 → TRG 20:21 → OB 05-31 22:23
PROVIDERS: ADMIT Obstetrics & Gynecology; ATTEND Obstetrics & Gynecology
PROC: 10E0XZZ Delivery of Products of Conception, External Approach (ICD-10-PCS; principal; 2020-05-31)
PROC: 3E0R3BZ Introduction of Anesthetic Agent into Spinal Canal, Percutaneous Approach (ICD-10-PCS; 2020-05-31)
PROC: 00HU33Z Insertion of Infusion Device into Spinal Canal, Percutaneous Approach (ICD-10-PCS; 2020-05-31)
PROC: 10H07YZ Insertion of Other Device into Products of Conception, Via Natural or Artificial Opening (ICD-10-PCS; 2020-05-31)
PROC: 10907ZC Drainage of Amniotic Fluid, Therapeutic from Products of Conception, Via Natural or Artificial Opening (ICD-10-PCS; 2020-05-31)
DX: O98.52 Other viral diseases complicating childbirth (principal); U07.1 COVID-19; Z37.0 Single live birth; D62 Acute posthemorrhagic anemia; O99.02 Anemia complicating childbirth; O77.0 Labor and delivery complicated by meconium in amniotic fluid; O76 Abnormality in fetal heart rate and rhythm complicating labor and delivery; Z3A.38 38 weeks gestation of pregnancy
CPT/HCPCS: 36415; 76815; 85014; 85018; 85027; 86850; 86900; 86901; G0378; J2590; J7120; U0003-CS